=== PATIENT | female | born 1975 | race Caucasian/White ===

== ENCOUNTER 2017-07-26 10:21 | Emergency (ER) | payer OTHER ==
[~2017-07-26] VITALS: Ht 157.5 cm; Wt 72.6 kg
[2017-07-26] MEDS ORDERED: INDOMETHACIN 2525 MG PO (10:29)
[2017-07-26 10:40] LABS: URINE COLOR YELLOW
[2017-07-26 10:41] LABS: URINE BILIRUBIN NEGATIVE (Negative); URINE BLOOD TRACE (Negative); URINE CLARITY CLEAR; URINE GLUCOSE-RANDOM NEGATIVE (Negative); URINE KETONES NEGATIVE (Negative); URINE LEUKOCYTES-REFLEX NEGATIVE (Negative); URINE NITRITE-REFLEX NEGATIVE (Negative); URINE PROTEIN NEGATIVE (Negative); URINE SPECIFIC GRAVITY <= 1.005 (1.005-1.030); URINE UROBILINOGEN 0.2 E.U./dl (0.2-1.0)
[2017-07-26 10:53] LABS: ABSOLUTE BASOPHILS 0.1 thou/uL (0.0-0.2); ABSOLUTE EOSINOPHILS 0.1 thou/uL (0.0-0.7); ABSOLUTE LYMPHOCYTES 2.7 thou/uL (0.8-5.3); ABSOLUTE MONOCYTES 0.6 thou/uL (0.0-1.2); ABSOLUTE NEUTROPHILS 6.2 thou/uL (1.6-8.1); BASOPHILS 1.3 %; EOSINOPHILS 1.3 %; HEMATOCRIT 43.3 % (37.0-47.0); HEMOGLOBIN 14.9 gm/dL (12.0-15.0); MCH 34.4 pg (26.0-34.0); MCHC 34.4 g/dL (28.0-37.0); MONOCYTES 5.8 %; MPV 7.7 fl. (7.2-11.1); NUCLEATED RBCS 0 /100WBC; PLATELET COUNT* 356 thou/uL (150-400); POLYS 63.6 %; RBC 4.33 mil/uL (4.20-5.00); RDW-CV 12.3 % (10.5-14.5); WBC 9.7 thou/uL (4.0-11.0)
[2017-07-26 10:58] LABS: CALCIUM 8.5 mg/dL (8.5-10.1); CREATININE 0.7 mg/dL (0.6-1.3); POTASSIUM 4.1 mmol/L (3.5-5.1)
[2017-07-26 11:02] LABS: TOTAL BILIRUBIN 0.2 mg/dL (<0.1-1.0); TOTAL PROTEIN 7.7 g/dL (6.4-8.2)
[2017-07-26 12:46] VITALS: BP 175/89
--- NOTE | 2017-07-26 17:07 | EKG ---
[place] [address] ELECTROCARDIOGRAM REPORT Name: SCOT JEAN Room: [facility]#: [id number] Admission: 07/26/17 Attend Phys: Discharge: 07/26/17 Date of : 77 Report #: [id number] THIS REPORT FOR: //name// [facility] [place] ED Test Date: 2017-07-26 Test Time: 11:15:42 Pat Name: SCOT JEAN Department: Room: Gender: F [employer] Operating Engineer: Nita JORDAN : 1975 Requested By: Glenis Decker Order Number: [id number] MD: Jed Mejía Measurements Intervals [place] Rate: 79 P: 75 AR: 152 QRS: 48 QRSD: 87 T: 49 QT: 356 QTc: 409 Interpretive Statements Sinus rhythm Probable left atrial enlargement Anteroseptal infarct, old No previous ECG available for comparison Electronically Signed On 07-26-2017 17:07:03 DIRECTOR MONEY by Jed Mejía [email or web address] <ELECTRONICALLY SIGNED> By: Jed Mejía MD, [facility] 07/26/17 1707 1115 [id number] Jed Mejía MD, FACC /EPI
== END 2017-07-26 12:48 | disposition home or self-care (01) ==
LOC: M.ERS 10:21
PROVIDERS: Nurse Practitioner Family
DX: R10.11 Right upper quadrant pain (principal)

== ENCOUNTER → 2017-07-30 | Outpatient (CLI) | payer OTHER ==
[~2017-07-30] MED LIST: INDOMETHACIN 2525 MG PO
== END ==
LOC: M.NUC 07:09
DX: R10.11 Right upper quadrant pain (principal)

== ENCOUNTER → 2017-09-01 | Outpatient (CLI) | payer OTHER | LOC: M.CT 16:49 | DX: R10.10 Upper abdominal pain, unspecified (principal); Z90.49 Acquired absence of other specified parts of digestive tract ==